=== PATIENT | male | born 1935 | race Caucasian/White ===

== ENCOUNTER 2016-11-16 14:22 | Outpatient (CLI) | END 2016-11-16 14:23 | LOC: AMBL 14:22 | PROVIDERS: ATTEND Emergency Medicine | DX: R53.1 Weakness (principal); R61 Generalized hyperhidrosis; E11.9 Type 2 diabetes mellitus without complications; E07.9 Disorder of thyroid, unspecified; X30.XXXA Exposure to excessive natural heat, initial encounter; V48.5XXA Car driver injured in noncollision transport accident in traffic accident, initial encounter; Z86.73 Personal history of transient ischemic attack (TIA), and cerebral infarction without residual deficits ==